=== PATIENT | male | born 1960 | race Caucasian/White ===

== ENCOUNTER 2022-04-07 14:43 | Outpatient (CLI) | payer OTHER | END 2022-04-07 14:44 | disposition home or self-care (01) | LOC: BICCT 14:43 | PROVIDERS: ATTEND Family Medicine | DX: Z13.6 Encounter for screening for cardiovascular disorders (principal); I10 Essential (primary) hypertension; I25.10 Atherosclerotic heart disease of native coronary artery without angina pectoris | CPT/HCPCS: 75571 ==

== ENCOUNTER 2022-04-22 11:04 | Outpatient (CLI) | payer BC, OTHER ==
[2022-04-22] MEDS ORDERED: Iopamidol-370 76% 500 ML 1 ML ONE (11:40)
== END 2022-04-22 11:05 | disposition home or self-care (01) ==
LOC: BICCT 11:04
PROVIDERS: ATTEND Internal Medicine
DX: C16.9 Malignant neoplasm of stomach, unspecified (principal); K31.89 Other diseases of stomach and duodenum; K76.9 Liver disease, unspecified; K57.30 Diverticulosis of large intestine without perforation or abscess without bleeding
CPT/HCPCS: 71260; 74177; 82565; Q9967